=== PATIENT | male | born 1965 | race Caucasian/White ===

== ENCOUNTER 2024-05-06 11:52 | Emergency (ER) | payer OTHER, SELFPAY ==
[2024-05-06 11:54] VITALS: BP 153/101
--- NOTE | 2024-05-06 12:12 | ED.GENMED ---
History of Present Illness
General
Chief Complaint: Skin Surface Trauma
Source: patient
Exam Limitations: none
Time Seen by Provider: 05/06/24 11:58
History of Present Illness
History of Present Illness:
58yo [id number] male presenting for a left thumb laceration that was sustained less than an hour ago. Patient was cutting a bagel slipped and accidentally cut himself with a knife. He is presenting with a small laceration to the lateral
aspect of the distal thumb. No paresthesias. No other concerns at this time. He reports his last Tdap was about 5 years ago.
Phy Exam
General Physical Exam
General Presentation: well appearing and no apparent distress
General age: appears stated age
General Skin: warm and dry
General Habitus: normal
General Mental: alert
ENT Exam
ENT Exam: normocephalic
Neurological Exam
Neurological Exam: alert
[place] Coma Scale
Eye Opening: Spontaneous
Verbal Response: Oriented
Motor Response: Obeys Commands
GCS Total Score: 15
Musculoskeletal Exam
Musculoskeletal Exam: other (L thumb: Superficial 1.5cm laceration present to the lateral aspect of the distal thumb. No active bleeding. No FB. No bony tenderness. ROM of IP joint intact. Cap refill and sensation intact at distal fingertip. )
Skin Exam
Skin Exam: warm/dry
Psychiatric Exam
Psychiatric Exam: normal mood/affect
Course
Vital Signs
Initial and Last Documented VS:
Initial Vital Signs
Temp Pulse Resp BP Pulse Ox
98.4 F 90 18 153/101 98
05/06/24 11:54 05/06/24 11:54 05/06/24 11:54 05/06/24 11:54 05/06/24 11:54
Last Documented Vital Signs
Temp Pulse Resp BP Pulse Ox
98.4 F 90 18 153/101 98
05/06/24 11:54 05/06/24 11:54 05/06/24 11:54 05/06/24 11:54 05/06/24 11:54
MDM/Problems Addressed
Differential Diagnosis Includes:
58yoM here with a L thumb laceration after accidentally cutting himself with a knife. Superficial 1.5cm laceration on exam without active bleeding. No bony tenderness and ROM intact. Digit is neurovascularly intact. No clinical evidence of tendon
injury. Wound was irrigated with saline and skin glue applied. Home wound care discussed. Advised return to the ED with any signs of infection. Patient discharged in stable condition.
*Critical Care Note
Total Time (30-74mins, 75-104mins- exclusive of procedures): Not Applicable
ED Attending Note
-
Portions of this chart may have been created with voice recognition software.� Occasional wrong word or��sound alike� substitutions may have occurred due to the inherent limitations of voice recognition software.
Discharge Plan
Departure
Patient Disposition: Home (Routine Discharge)
Date of Disposition: 05/06/24
Time of Disposition: 12:13
Patient with high blood pressure during this ER visit?: Yes
Discharge Problem:
Laceration of left thumb
Instructions: Laceration Repair With Glue (DC)
Referrals:
John Davidson, DO [Family Provider] -
Activity Restrictions/Additional Instructions:
Try not to get the laceration wet for the next 24 hours. The skin glue will dissolve on its own in a few days.
Return to the ER with any uncontrolled bleeding or signs of infection.
Interventions
Interventions:
*Risk Screen - Suicide Last Done: 05/06/24 11:54
*General Assessment Last Done: 05/06/24 11:54
*Neglect/Abuse Screening Last Done: 05/06/24 11:54
*ED- Fall Risk Assessment Last Done: 05/06/24 11:54
*ED COVID-19 Vaccine History Last Done: 05/06/24 11:54
*Nursing Disposition Last Done: 05/06/24 12:28
ED-Skin Assessment Last Done: 05/06/24 12:28
Discharge Date and Time
Discharge Date/Time: 05/06/24 12:29
Print Language: ALBAN[place]
== END 2024-05-06 12:29 | disposition home or self-care (01) ==
LOC: EMR 11:52
PROVIDERS: EMERGENCY PHYSICIAN Emergency Medicine; FAMILY PHYSICIAN Internal Medicine
DX: S61.012A Laceration without foreign body of left thumb without damage to nail, initial encounter (principal); W26.0XXA Contact with knife, initial encounter; Y93.G1 Activity, food preparation and clean up
CPT/HCPCS: 99282